=== PATIENT | female | born 1995 | race Caucasian/White ===

== ENCOUNTER 2016-12-10 23:24 | Emergency (ER) | payer SELFPAY ==
[2016-12-10 23:32] VITALS: RESP 18
[2016-12-11] MEDS ORDERED: diphenhydrAMINE 50 MG/ML 1 ML VIAL IVP STA (01:11)
[2016-12-11] MEDS ORDERED: METOCLOPRAMIDE 5 MG/ML 2 ML VIAL IVP STA (01:11)
[2016-12-11] MEDS ORDERED: SODIUM CHLORIDE 0.9% 1,000 ML IV STA (01:11)
[2016-12-11 01:45] LABS: Basophils % (A) 0 %; CH 32.6; CHCM 36.9; Eosinophils % (A) 0 %; HCT 37.2 % (34.0-46.0); HDW 2.51; HGB 13.1 gm/dL (11.4-16.0); Luc # (Auto) 0.16; Luc % (Auto) 1; Lymphocytes # (A) 1.2 k/uL (1.0-4.8); Lymphocytes % (A) 8 %; MCH 31.4 pg (25.0-35.0); MCHC 35.3 g/dL (31.0-37.0); MCV 88.9 fL (80.0-100.0); Mean Platelet Volume 7.5; Monocytes # (A) 0.5 k/uL (0-1.0); Monocytes % (A) 4 %; Neutrophils % (A) 87 %; RBC 4.19 m/uL (3.80-5.40); RDW 12.7 % (11.5-15.5); WBC 13.9 k/uL (3.8-10.6); WBC (Perox) 13.82
[2016-12-11 01:56] LABS: ALT 31 U/L (9-52); AST 21 U/L (14-36); Alkaline Phosphatase 40 U/L (38-126); Amylase 119 U/L (30-110); Anion Gap 13 mmol/L; Blood Urea Nitrogen 11 mg/dL (7-17); Calcium 9.4 mg/dL (8.4-10.2); Carbon Dioxide 23 mmol/L (22-30); Chloride 104 mmol/L (98-107); Glucose 87 mg/dL (74-99); Non-African American GFR(MDRD) >60 (>60 ml/min/1.73 sqM); Potassium 4.2 mmol/L (3.5-5.1); Sodium 140 mmol/L (137-145); Total Bilirubin 0.6 mg/dL (0.2-1.3); Total Protein 6.7 g/dL (6.3-8.2)
[2016-12-11 02:20] LABS: Appearance,Urine Cloudy (Clear); Bilirubin,Urine Negative (Negative); Glucose,Urine (UA) Negative (Negative); Ketones,Urine 4+ (Negative); Leukocyte Esterase,Urine Large (Negative); Mucus,Urine Few /hpf; Nitrite,Urine Negative (Negative); PH, Urine 5.5 (5.0-8.0); Particle Count 12807; Protein,Urine 1+ (Negative); RBC,Urine 16 /hpf (0-5); Specific Gravity,Urine 1.023 (1.001-1.035); Squamous Epithelial Cell,Urine 6 /hpf (0-4); UA Billing (MACRO vs. MICRO) MICRO; Urobilinogen,Urine <2.0 mg/dL (<2.0); WBC,Urine 22 /hpf (0-5)
[2016-12-11] MEDS ORDERED: SODIUM CHLORIDE 0.9% 1,000 ML IV ONE (02:36)
--- NOTE | 2016-12-11 02:42 | ED ---
Nausea/Vomiting/Diarrhea HPI - General Chief complaint: Nausea/Vomiting/Diarrhea Stated complaint: vomiting/13 wks preg Time Seen by Provider: 12/11/16 01:03 Source: patient, RN notes reviewed, old records reviewed Mode of arrival: ambulatory Limitations: no limitations - History of Present Illness Initial comments: Patient is a 20-year-old female reporting that this is her second and she is currently 13 weeks with 1 day of intractable vomiting. Patient reports that she has been vomiting every 30 minutes all day today. She denies any symptoms of diarrhea, dysuria, hematuria or specific abdominal pain. Patient reports that she's had an ultrasound recently 3 weeks ago which reported that her is developing within the uterus and is normal. She denies any vaginal discharge or bleeding. She denies any cramping abdominal pain. Patient also denies any fever or chills or history of sick contacts. She 's been eating a normal diet and denies any possibility of food poisoning. - Related Data Home Medications Medication Instructions Recorded Confirmed L.acidoph,Paracasei, B.lactis 1 cap PO DAILY 12/27/15 10/16/16 [Probiotic] Previous Rx's Medication Instructions Recorded Amoxic-Pot Clav 500-125 mg 1 tab PO Q12HR #10 tab 12/11/16 [Augmentin 500-125 mg] Metoclopramide [Reglan] 10 mg PO TID #8 tab 12/11/16 Allergies Allergy/AdvReac Type Severity Reaction Status Date / Time No Known Allergies Allergy Verified 12/10/16 23:32 Review of Systems ROS Statement: Those systems with pertinent positive or pertinent negative responses have been documented in the HPI. ROS Other: All systems not noted in ROS Statement are negative. Past Medical History Past Medical History: No Reported History Additional Past Medical History / Comment(s): palpatations with dizziness in the past {seen in the [facility] on 12/12/15 for sx and released} pt states she was told her thyroid levels were low by an "all natural doctor" and was taking an OTC supplement for it. History of Any Multi-Drug Resistant Organisms: None Reported Past Surgical History: No Surgical Hx Reported Past Anesthesia/Blood Transfusion Reactions: No Reported Reaction Past Psychological History: No Psychological Hx Reported Smoking Status: Never smoker Past Alcohol Use History: None Reported Past Drug Use History: None Reported - Past Family History Father Additional Family Medical History / Comment(s): irregular heartbeat pt is unsure of what the term is General Exam - General Exam Comments Initial Comments: Cirilo is a pleasant 20-year-old [employer]. She does appear to be tired. Limitations: no limitations General appearance: alert, in no apparent distress Head exam: Present: atraumatic, normocephalic, normal inspection Eye exam: Present: normal appearance, PERRL, EOMI. Absent: scleral icterus, conjunctival injection, periorbital swelling ENT exam: Present: normal exam, normal oropharynx, mucous membranes dry. Absent : mucous membranes moist Neck exam: Present: normal inspection. Absent: tenderness, meningismus, lymphadenopathy Respiratory exam: Present: normal lung sounds bilaterally. Absent: respiratory distress, wheezes, rales, rhonchi, stridor Cardiovascular Exam: Present: regular rate, normal rhythm, normal heart sounds. Absent: systolic murmur, diastolic murmur, rubs, gallop, clicks GI/Abdominal exam: Present: soft, normal bowel sounds. Absent: distended, tenderness, guarding, rebound, rigid Extremities exam: Present: normal inspection, full ROM, normal capillary refill. Absent: tenderness, pedal edema, joint swelling, calf tenderness Back exam: Present: normal inspection Neurological exam: Present: alert, oriented X3, CN II-XII intact Psychiatric exam: Present: normal affect, normal mood Course Vital Signs 12/10/16 12/11/16 23:30 03:33 Temperature 98.4 F 97.6 F Pulse Rate 67 88 Respiratory 18 18 Rate Blood Pressure 103/53 102/56 O2 Sat by Pulse 99 98 Oximetry Medical Decision Making - Medical Decision Making Cirilo is a 20-year-old F[employer] chief complaint of irretractable vomiting for one day. She denies any diarrhea. She is currently 13 weeks , she denies any vaginal discharge or bleeding or abdominal/cramping pain. Patient's labs are obtained and are negative for any acute process. Patient was given a 2 L saline bolus. Urinalysis does show 4+ ketones and numerous red blood cells and white blood cells. Patient will be started on Augmentin for possible urinary tract infection. Urine will be cultured. I'll write the patient for Reglan for vomiting and advised her to follow-up with her [facility] and PCP. Patient understands the treatment plan will comply. She was reevaluated and states that her nausea feeling is subsided. Patient states that she would like to be discharged at this time. Return parameters were discussed. - Lab Data Result diagrams: 12/11/16 01:35 12/11/16 01:35 Lab Results 12/11/16 12/11/16 12/11/16 Range/Units 01:35 01:35 02:01 WBC 13.9 H (3.8-10.6) k/uL RBC 4.19 (3.80-5.40) m/uL Hgb 13.1 (11.4-16.0) gm/dL Hct 37.2 (34.0-46.0) % MCV 88.9 (80.0-100.0) fL MCH 31.4 (25.0-35.0) pg MCHC 35.3 (31.0-37.0) g/dL RDW 12.7 (11.5-15.5) % Plt Count 211 (150-450) k/uL Neutrophils % 87 % Lymphocytes % 8 % Monocytes % 4 % Eosinophils % 0 % Basophils % 0 % Neutrophils # 12.0 H (1.3-7.7) k/uL Lymphocytes # 1.2 (1.0-4.8) k/uL Monocytes # 0.5 (0-1.0) k/uL Eosinophils # 0.0 (0-0.7) k/uL Basophils # 0.0 (0-0.2) k/uL Sodium 140 (137-145) mmol/L Potassium 4.2 (3.5-5.1) mmol/L Chloride 104 (98-107) mmol/L Carbon Dioxide 23 (22-30) mmol/L Anion Gap 13 mmol/L BUN 11 (7-17) mg/dL Creatinine 0.50 L (0.52-1.04) mg/dL Est GFR (MDRD) Af Amer >60 (>60 ml/min/1.73 sqM) Est GFR (MDRD) Non-Af >60 (>60 ml/min/1.73 sqM) Glucose 87 (74-99) mg/dL Calcium 9.4 (8.4-10.2) mg/dL Total Bilirubin 0.6 (0.2-1.3) mg/dL AST 21 (14-36) U/L ALT 31 (9-52) U/L Alkaline Phosphatase 40 (38-126) U/L Total Protein 6.7 (6.3-8.2) g/dL Albumin 3.8 (3.5-5.0) g/dL Amylase 119 H (30-110) U/L Lipase 99 (23-300) U/L Urine Color Yellow Urine Appearance Cloudy H (Clear) Urine pH 5.5 (5.0-8.0) Ur Specific [place] 1.023 (1.001-1.035) Urine Protein 1+ H (Negative) Urine Glucose (UA) Negative (Negative) Urine Ketones 4+ H (Negative) Urine Blood Negative (Negative) Urine Nitrate Negative (Negative) Urine Bilirubin Negative (Negative) Urine Urobilinogen <2.0 (<2.0) mg/dL Ur Leukocyte Esterase Large H (Negative) Urine RBC 16 H (0-5) /hpf Urine WBC 22 H (0-5) /hpf Ur Squamous Epith Cells 6 H (0-4) /hpf Urine Mucus Few H (None) /hpf Disposition Clinical Impression: Vomiting affecting , UTI (urinary tract infection) Disposition: HOME SELF-CARE Condition: Good Instructions: Acute Nausea and Vomiting (ED) Additional Instructions: Patient advised to rest, increase fluids and complete entire antibiotic prescription. Follow-up with primary care provider. Return to the emergency department if any alarming signs or symptoms occur. Prescriptions: Amoxic-Pot Clav 500-125 mg [Augmentin 500-125 mg] 1 tab PO Q12HR #10 tab Metoclopramide [Reglan] 10 mg PO TID #8 tab Referrals: Meghna Layne MD [Primary Care Provider] - 1-2 days Time of Disposition: 02:42
[2016-12-11 03:36] VITALS: BP 102/56; PULSE 88; TEMP 97.6
== END 2016-12-11 03:36 | disposition home or self-care (01) ==
LOC: EC 23:24
DX: O23.41 Unspecified infection of urinary tract in pregnancy, first trimester (principal); R11.2 Nausea with vomiting, unspecified; Z3A.13 13 weeks gestation of pregnancy; Z79.899 Other long term (current) drug therapy
CPT/HCPCS: 36415; 80053; 82150; 83690; 85025; 81001; 87086; 99284; 96374; 96361; J2765

== ENCOUNTER → 2017-04-10 | Outpatient (CLI) | payer OTHER | LOC: LABWHC1 10:38 | PROVIDERS: ATTEND Obstetrics & Gynecology | DX: Z36 Encounter for antenatal screening of mother (principal) | CPT/HCPCS: 36415; 82950 ==

== ENCOUNTER 2017-06-06 21:49 | Outpatient (CLI) | payer OTHER ==
[2017-06-06 22:23] VITALS: BP 113/62; PULSE 60; RESP 18; TEMP 96.3
--- NOTE | 2017-08-11 21:48 | P.MSEPDOC ---
Presenting Problems - Arrival Data Date of Arrival on Unit: 06/06/17 Time of Arrival on Unit: 21:41 Mode of Transport: Ambulatory - Complaint OB-Reason for Admission/Chief Complaint: Possible Onset of Labor Comment: Pt c/o contractions. Medical History - Information : 1 Para: 0 Term: 0 : 0 Abortions: Spontaneous or Elective: 0 Number of Living Children: 0 - Gestational Age Gestational Age by DARRIUS (wks/days): 38 Weeks and 1 Days Review of Systems - Review of Systems Constitutional: No problems Breast: No problems ENT: No problems Cardiovascular: No problems Respiratory: No problems Gastrointestinal: No problems Genitourinary: No problems Musculoskeletal: No problems Neurological: No problems Skin: No problems Vital Signs - Temperature Temperature: 96.3 F Temperature Source: Temporal Artery Scan - Pulse Right Pulse Rate: 60 Pulse Assessment Method: Automatic Cuff - Respirations Respiratory Rate: 18 Oxygen Delivery Method: Room Air - Blood Pressure Right Arm Blood Pressure: 113/62 Blood Pressure Mean: 79 Blood Pressure Source: Automatic Cuff Medical Screen Scoring (Pre) - Cervical Exam Dilation: 1-3 cm = 1 Membranes: Intact - Uterine Contractions Frequency: > 5 minutes apart = 1 Duration: > 40 seconds = 2 Intensity: N/A - Maternal Vital Signs Maternal Temperature: N/A Maternal Blood Pressure: N/A Signs of Preeclampsia: N/A Maternal Respirations: N/A - Maternal Trauma Maternal Trauma: N/A - Assessment Baseline FHR: 135 Heart Rate - NICHD Category: Category I (Normal) = 0 NST: Reactive Position: N/A Station: N/A - Total Score Total Score (Pre): 4 - Level of Risk Level of Risk: Low (0-5) Medical Screen Scoring (Post) - Cervical Exam Dilation: 1-3 cm = 1 Effacement: More than 50% = 2 Membranes: Intact - Uterine Contractions Frequency: > 5 minutes apart = 1 Duration: N/A Intensity: N/A - Maternal Vital Signs Maternal Temperature: N/A Maternal Blood Pressure: N/A Signs of Preeclampsia: N/A Maternal Respirations: N/A - Maternal Trauma Maternal Trauma: N/A - Assessment Heart Rate: 135 Heart Rate - NICHD Category: Category I (Normal) = 0 NST: Reactive Position: N/A Station: N/A - Total Score Total Score (Post): 4 - Post Treatment Level of Risk Post Treatment Level of Risk: Low (0-5) Physician Notification (Post) - Physician Notified Physician Notified Date: 06/06/17 Physician Notified Time: 23:42 Physician/Practitioner Notified:: Dr. Chavira Spoke With: Dr. Chavira New Order Received: Yes - Notification Comment Comment: Instructed to recheck cervical exam in 1 hour. If no change pt may be discharged home. Disposition - Disposition OB Disposition: Discharge to home, Written follow up instructions reviewed Discharge Date: 06/07/17 Discharge Time: 00:40 I agree with the RN Medical Screening Exam: Yes Risk & Benefit of care provided described in d/c instruction: Yes Diagnosis: FALSE LABOR AT OR AFTER 37 COMPLETED WEEKS OF GESTATION
== END 2017-06-07 00:40 | disposition home or self-care (01) ==
LOC: FBPOP 21:49
PROVIDERS: ATTEND Obstetrics & Gynecology
DX: O47.1 False labor at or after 37 completed weeks of gestation (principal); Z3A.38 38 weeks gestation of pregnancy
CPT/HCPCS: 59025; G0463; 99213

== ENCOUNTER 2017-06-09 23:38 | Inpatient (IN) | payer OTHER ==
[2017-06-10] MEDS: LACTATED RINGERS 1,000 ML IV SCH ×3 (00:20→20:01)
[2017-06-10] MEDS ORDERED: LIDOCAINE 1% (PF) 10 MG/ML (30 ML SDV) SQ PRN (00:21)
[2017-06-10] MEDS ORDERED: TERBUTALINE 1 MG/ML VIAL SQ PRN (00:21)
[2017-06-10] MEDS ORDERED: CARBOPROST TROMETHAMINE 250 MCG/ML 1 ML AMP IM PRN (00:21)
[2017-06-10] MEDS ORDERED: OXYTOCIN 10 UNIT/ML 1 ML VIAL IM PRN (00:21)
[2017-06-10] MEDS ORDERED: METHYLERGONOVINE 0.2 MG/ML 1 ML AMP IM PRN (00:21)
[2017-06-10 00:35] VITALS: BMI 25.8
[2017-06-10 00:44] LABS: Basophils # (A) 0.1 k/uL (0-0.2); Basophils % (A) 1 %; CH 34.7; CHCM 36.7; Eosinophils # (A) 0.1 k/uL (0-0.7); Eosinophils % (A) 1 %; HCT 38.3 % (34.0-46.0); HDW 2.74; HGB 13.5 gm/dL (11.4-16.0); Luc # (Auto) 0.32; Luc % (Auto) 3; Lymphocytes # (A) 2.3 k/uL (1.0-4.8); Lymphocytes % (A) 20 %; MCH 33.4 pg (25.0-35.0); MCHC 35.1 g/dL (31.0-37.0); MCV 95.1 fL (80.0-100.0); Mean Platelet Volume 8.2; Monocytes # (A) 0.7 k/uL (0-1.0); Monocytes % (A) 6 %; Neutrophils # (A) 8.3 k/uL (1.3-7.7); Neutrophils % (A) 70 %; RBC 4.03 m/uL (3.80-5.40); RDW 13.5 % (11.5-15.5); WBC 11.7 k/uL (3.8-10.6); WBC (Perox) 11.28
[2017-06-10] MEDS ORDERED: BUTORPHANOL 1 MG/ML 1 ML VIAL IV PRN (03:19)
[2017-06-10] MEDS ORDERED: OXYTOCIN 20 UNITS/1000 ML NS 1,000 ML IV SCH (06:30)
--- NOTE | 2017-06-10 07:41 | P.HPOB ---
History of Present Illness H&P Date: 06/10/17 This is a 21-year-old white female 2 para 0010 EDC 06/20/2017 at 38-3/7 weeks' gestation. Patient presented with spontaneous amniorrhexis which she states occurred at home at approximately 11:15 PM last night. Fluid was clear. Fetus is been active throughout the . On admission she denied uterine contractions. history blood type A+, rubella status immune. Hepatitis B surface antigen, gonorrhea and chlamydia cultures, group B strep cultures negative urine culture negative. One-hour Glucola 113. 19 week ultrasound consistent with normal-appearing anatomic survey. Past medical history is significant for anxiety and hypothyroidism. Past surgical history is negative. Current medications vitamins daily, probiotics daily, vitamin B6 daily ALLERGIES none known. Family history is significant for uterine cancer and hypoplastic heart. Social history patient is single, her boyfriend Michael is involved. She is a nonsmoker, and denies alcohol use. On exam this is a pleasant young female, 5 foot 7 inches, 165 pounds, blood pressure 118/70, vital signs stable, patient is afebrile. The general physical exam is within normal limits. The chest is clear in all high. Cervix at time of this dictation is 5 cm dilated, 80% effaced, -1 to -2 station, vertex presentation. There is a fore bag that is broken with an amnio-hook and clear fluid was produced. heart rate is consistent with reactive NST. Impression: 38-3/7 weeks intrauterine , here in active spontaneous labor. All signs reassuring. unremarkable. Plan: Continue oxytocin augmentation per hospital protocol. Close maternal and surveillance. Analgesia options are reviewed with the patient. Anticipate normal spontaneous vaginal delivery. Review of Systems Negative except as in HPI. Constitutional: Reports as per HPI Past Medical History Past Medical History: No Reported History Additional Past Medical History / Comment(s): palpatations with dizziness in the past {seen in the [facility] on 12/12/15 for sx and released} pt states she was told her thyroid levels were low by an "all natural doctor" and was taking an OTC supplement for it. History of Any Multi-Drug Resistant Organisms: None Reported Past Surgical History: No Surgical Hx Reported Past Anesthesia/Blood Transfusion Reactions: No Reported Reaction Past Psychological History: No Psychological Hx Reported Smoking Status: Never smoker Past Alcohol Use History: None Reported Past Drug Use History: None Reported - Past Family History Father Additional Family Medical History / Comment(s): irregular heartbeat pt is unsure of what the term is Medications and Allergies Home Medications Medication Instructions Recorded Confirmed Type L.acidoph,Paracasei, B.lactis 1 cap PO DAILY 12/27/15 06/09/17 History [Probiotic] Pnv,Calcium 72/Iron/Folic Acid 1 tab PO DAILY 06/06/17 06/09/17 History [ Plus Tablet] Allergies Allergy/AdvReac Type Severity Reaction Status Date / Time No Known Allergies Allergy Verified 06/09/17 23:42 Exam - Vital Signs Vital signs: Vital Signs Temp Pulse Resp BP Pulse Ox 06/10/17 00:25 97.1 F L 82 15 118/70 100 06/09/17 23:42 97 F L 82 15 118/70 100 Intake and Output 06/09/17 06/10/17 06/10/17 22:59 06:59 14:59 Other: # Voids 1 Weight 74.843 kg See dictation under HPI. Results Result Diagrams: 06/10/17 00:20 Abnormal Lab Results - Last 24 Hours (Table) 06/10/17 Range/Units 00:20 WBC 11.7 H (3.8-10.6) k/uL Neutrophils # 8.3 H (1.3-7.7) k/uL Assessment and Plan Plan: Continue oxytocin per hospital protocol. Close maternal and surveillance. Analgesic options have been reviewed with the patient for her consideration. Anticipate normal spontaneous vaginal delivery. Time with Patient: Less than 30
[2017-06-10] MEDS ORDERED: Acetaminophen-Codeine 300-30mg TAB PO PRN (11:51)
[2017-06-10] MEDS ORDERED: ACETAMINOPHEN TAB 325 MG TAB PO PRN (11:51)
[2017-06-10] MEDS ORDERED: HYDROCORTISONE 2.5% RECTAL CREAM 30 GM TUBE RECTAL PRN (11:51)
[2017-06-10] MEDS ORDERED: ZOLPIDEM 5 MG TAB PO PRN (11:51)
[2017-06-10] MEDS ORDERED: diphenhydrAMINE 25 MG CAP PO PRN (11:51)
[2017-06-10] MEDS ORDERED: diphenhydrAMINE 50 MG CAP PO PRN (11:51)
[2017-06-10] MEDS ORDERED: diphenhydrAMINE 50 MG/ML 1 ML VIAL IVP PRN ×2 (11:51)
[2017-06-10] MEDS ORDERED: WITCH HAZEL 1 EACH MED..PAD TOPICAL PRN (11:51)
[2017-06-10] MEDS ORDERED: BENZOCAINE/MENTHOL SPRAY 1 GM/SPRAY AEROSOL TOPICAL PRN (11:51)
[2017-06-10] MEDS ORDERED: diphenhydrAMINE ELIXIR 25 MG/10 ML CUP PO PRN (11:51)
[2017-06-10] MEDS ORDERED: SIMETHICONE 80 MG CHEWABLE PO PRN (11:51)
[2017-06-10] MEDS ORDERED: LANOLIN CREAM 5 GM TUBE TOPICAL PRN (11:51)
--- NOTE | 2017-06-10 11:51 | P.PROBDLV ---
Vaginal Delivery Note - . Vaginal Delivery Note: This is a 21-year-old white female 2 para 0010 EDC 06/20/2017 at 38-3/7 weeks' gestation. Patient presented with spontaneous amniorrhexis which occurred at home, clear fluid, with rare mild uterine contractions to follow. is essentially unremarkable, group B strep cultures negative, blood type A positive, rubella status immune. Please see my dictated history and physical for details. Oxytocin was started and titrated per hospital protocol. Patient received Stadol but declined the option for epidural. She progressed through labor and became completely dilated at 1058 hrs. She began the second stage of labor without issue. With excellent maternal expulsive efforts the 's head came down the canal. The perineal body was prepped and draped in usual sterile fashion. delivered occiput anterior and restituted accordingly. There was no nuchal cord noted. The left or anterior shoulder was gently and easily delivered from underneath the pubic symphysis at which time the oropharynx, nasopharynx, and external nares were bulb suctioned on the perineal body. Patient was officially delivered of a liveborn female at 1131 hours. The umbilical cord was doubly clamped and ligated, she was handed to waiting nurses for evaluation where scores of 9 and 9 at one and 5 minutes respectively were given. The uterus was then massaged. Placenta delivered spontaneously, it was inspected and noted to be intact with trivascular cord at 1135 hours. At this time Pitocin was given. Uterus is again massaged and blood flow is minimal. Inspection of the cervix, vagina, perineum, periurethral, and perirectal areas revealed a small second-degree perineal laceration. This was easily repaired in the usual fashion using 3-0 Vicryl suture. We approximation was excellent. Infant weighed 7 lbs. 4 oz. or 3295 g. Estimated blood loss 300 mL's. Sponge needle and enhancement counts are correct at the end of the procedure. Patient and her family are allowed to begin the bonding experience in the LDR.
[2017-06-10] MEDS: IBUPROFEN 600 MG TAB PO PRN ×2 (13:18→23:47)
[2017-06-10] MEDS: SENNOSIDES-DOCUSATE SODIUM 1 EACH TAB PO SCH (20:46)
--- NOTE | 2017-06-11 06:48 | P.DS ---
Providers Date of admission: 06/10/17 00:23 Expected date of discharge: 06/11/17 Attending physician: Renee Mukherjee [facility] [place] [facility] Course: This is a 21-year-old white female 2 para 0010 EDC 06/20/2017 at 38-3/7 weeks' gestation. Patient presented with spontaneous amniorrhexis which occurred at home, clear fluid, and uterine contractions irregularly to follow. Fetus is been active throughout the . history was essentially unremarkable, group B strep cultures negative, blood type A positive , rubella status immune. Please see my dictated history and physical for details. Patient was admitted, epidural was placed per her request. She went on to spontaneously deliver a liveborn female with scores of 9 and 9 at one and 5 minutes respectively. weighed 3295 g or 7 lbs. 4 oz. There was an estimated blood loss of 300 mL, a small perineal laceration easily repaired, please see dictated delivery note for details. This morning the patient is doing well. She is voiding, ambulating and passing flatus without difficulty. Vital signs are stable and she is afebrile. Fundus is firm and in the midline, symmetric and 18 week size, extremities are negative for edema. Perineal body is clean and dry, intact. Gobles is doing well. Patient is being discharged home in good condition. She will follow-up with me in the office in 6 weeks. I have reminded her no intercourse, tampons or douching. She will use [id number] Aleve as needed for pain. She will continue taking her vitamin daily. I reminded her no intercourse, tampons or douching. We have briefly reviewed her options for contraception and we will discuss this more thoroughly in the office. Call with any fevers shakes or chills, foul smelling or copious lochia, with the passage of large blood clots, with any pain not alleviated by [id number] products, or indeed with any concerns. Patient Condition at Discharge: Good Plan - Discharge Summary New Discharge Prescriptions: No Action L.acidoph,Paracasei, B.lactis [Probiotic] 1 cap PO DAILY Pnv,Calcium 72/Iron/Folic Acid [ Plus Tablet] 1 tab PO DAILY Discharge Medication List L.acidoph,Paracasei, B.lactis [Probiotic] 1 cap PO DAILY 12/27/15 [History] Pnv,Calcium 72/Iron/Folic Acid [ Plus Tablet] 1 tab PO DAILY 06/06/17 [ History] Follow up Appointment(s)/Referral(s): Renee Mukherjee MD [Primary Care Provider] - 6 Weeks Discharge Disposition: HOME SELF-CARE
[2017-06-11] MEDS: SENNOSIDES-DOCUSATE SODIUM 1 EACH TAB PO SCH (07:30)
[2017-06-11 07:32] VITALS: BP 99/52; PULSE 66; RESP 16; TEMP 98.2
== END 2017-06-11 13:14 | disposition home or self-care (01) | DRG 775 ==
LOC: FBPOP 23:38 → 4FBP 06-10 00:23
PROVIDERS: ADMIT Obstetrics & Gynecology; ATTEND Obstetrics & Gynecology
PROC: 10E0XZZ Delivery of Products of Conception, External Approach (ICD-10-PCS; principal; 2017-06-10)
PROC: 0KQM0ZZ Repair Perineum Muscle, Open Approach (ICD-10-PCS; 2017-06-10)
PROC: 00HU33Z Insertion of Infusion Device into Spinal Canal, Percutaneous Approach (ICD-10-PCS; 2017-06-10)
PROC: 3E0R3CZ (ICD-10-PCS; 2017-06-10)
DX: O70.1 Second degree perineal laceration during delivery (principal); O99.284 Endocrine, nutritional and metabolic diseases complicating childbirth; E03.9 Hypothyroidism, unspecified; Z37.0 Single live birth; Z3A.38 38 weeks gestation of pregnancy; Z79.899 Other long term (current) drug therapy
CPT/HCPCS: 59025; 85025; 88307; 99213

== ENCOUNTER 2020-12-23 19:36 | Emergency (ER) | payer BC, OTHER ==
[2020-12-23] MEDS ORDERED: SODIUM CHLORIDE 0.9% 500 ML 500 ML IV STA (20:16)
[2020-12-23] MEDS ORDERED: SODIUM CHLORIDE 0.9% 1,000 ML IV STA (20:16)
[2020-12-23 20:42] LABS: Basophils % (A) 0 %; Eosinophils # (A) 0.1 k/uL (0-0.7); Eosinophils % (A) 1 %; HCT 38.6 % (34.0-46.0); HGB 13.3 gm/dL (11.4-16.0); Lymphocytes # (A) 2.3 k/uL (1.0-4.8); Lymphocytes % (A) 18 %; MCH 31.4 pg (25.0-35.0); MCHC 34.4 g/dL (31.0-37.0); MCV 91.5 fL (80.0-100.0); Mean Platelet Volume 7.4; Monocytes # (A) 0.7 k/uL (0-1.0); Monocytes % (A) 6 %; Neutrophils # (A) 9.2 k/uL (1.3-7.7); Neutrophils % (A) 73 %; Platelet Count 233 k/uL (150-450); RBC 4.22 m/uL (3.80-5.40); RDW 13.4 % (11.5-15.5); WBC 12.6 k/uL (3.8-10.6)
[2020-12-23 20:43] LABS: Appearance,Urine Clear (Clear); Bilirubin,Urine Negative (Negative); Blood,Urine Negative (Negative); Color,Urine Yellow; Glucose,Urine (UA) Negative (Negative); Ketones,Urine Trace (Negative); Leukocyte Esterase,Urine Small (Negative); Mucus,Urine Rare /hpf; Nitrite,Urine Negative (Negative); PH, Urine 6.5 (5.0-8.0); Protein,Urine Trace (Negative); RBC,Urine 1 /hpf (0-5); Specific Gravity,Urine 1.027 (1.001-1.035); Squamous Epithelial Cell,Urine 4 /hpf (0-4); WBC,Urine 3 /hpf (0-5)
[2020-12-23 20:51] LABS: ALT 17 U/L (4-34); AST 29 U/L (14-36); African American GFR (CKD) >90 (>60 ml/min/1.73 sqM); Albumin 3.8 g/dL (3.5-5.0); Alkaline Phosphatase 71 U/L (38-126); Amylase 193 U/L (30-110); Anion Gap 6 mmol/L; Blood Urea Nitrogen 7 mg/dL (7-17); Calcium 9.1 mg/dL (8.4-10.2); Carbon Dioxide 24 mmol/L (22-30); Chloride 103 mmol/L (98-107); Glucose 91 mg/dL (74-99); Lipase 216 U/L (23-300); Non-African American GFR(CKD) >90 (>60 ml/min/1.73 sqM); Potassium 3.8 mmol/L (3.5-5.1); Sodium 133 mmol/L (137-145); Total Bilirubin 0.5 mg/dL (0.2-1.3); Total Protein 6.7 g/dL (6.3-8.2)
--- NOTE | 2020-12-23 20:56 | ED ---
Abdominal Pain HPI - General Chief Complaint: Abdominal Pain Stated Complaint: Gall Bladder Pain,29 weeks Time Seen by Provider: 12/23/20 19:53 Source: patient, RN notes reviewed Mode of arrival: wheelchair Limitations: no limitations - History of Present Illness Initial Comments: 24-year-old female presents emergency Department with chief complaint of a bdominal pain. Patient's been having recurrent bouts of pain she states it has been associated with certain foods. Patient states she gets extreme pain in her upper abdomen and she states that she probably vomits. Patient is 29 weeks she is A0 she did complain that she had morning sickness which seemed to resolve and now has developed into this. She has meant that she has heartburn issues in which she takes Tums for. Denies any diarrhea constipation no melena hematochezia dysuria hematuria denies any compilations her she's felt normal movement. Patient's GENERAL ADJUSTER is Dr. Mukherjee. - Related Data Home Medications Medication Instructions Recorded Confirmed L.acidoph,Paracasei, B.lactis 1 cap PO DAILY 12/27/15 06/09/17 [Probiotic] Pnv,Calcium 72/Iron/Folic Acid 1 tab PO DAILY 06/06/17 06/09/17 [ Plus Tablet] Allergies Allergy/AdvReac Type Severity Reaction Status Date / Time No Known Allergies Allergy Verified 12/23/20 19:52 Review of Systems ROS Statement: Those systems with pertinent positive or pertinent negative responses have been documented in the HPI. ROS Other: All systems not noted in ROS Statement are negative. Past Medical History Past Medical History: No Reported History Additional Past Medical History / Comment(s): palpatations with dizziness in the past {seen in the [facility] on 12/12/15 for sx and released} pt states she was told her thyroid levels were low by an "all natural doctor" and was taking an OTC supplement for it. History of Any Multi-Drug Resistant Organisms: None Reported Past Surgical History: No Surgical Hx Reported Past Anesthesia/Blood Transfusion Reactions: No Reported Reaction Past Psychological History: No Psychological Hx Reported Smoking Status: Never smoker Past Alcohol Use History: None Reported Past Drug Use History: None Reported - Past Family History Father Additional Family Medical History / Comment(s): irregular heartbeat pt is unsure of what the term is General Exam Limitations: no limitations General appearance: alert, in no apparent distress Head exam: Present: atraumatic, normocephalic, normal inspection Eye exam: Present: normal appearance, PERRL, EOMI. Absent: scleral icterus, conjunctival injection, periorbital swelling ENT exam: Present: normal exam, normal oropharynx, mucous membranes moist Neck exam: Present: normal inspection, full ROM. Absent: tenderness, meni ngismus, lymphadenopathy Respiratory exam: Present: normal lung sounds bilaterally. Absent: respiratory distress, wheezes, rales, rhonchi, stridor Cardiovascular Exam: Present: regular rate, normal rhythm, normal heart sounds. Absent: systolic murmur, diastolic murmur, rubs, gallop, clicks GI/Abdominal exam: Present: soft, tenderness (Mild upper abdominal tenderness), normal bowel sounds. Absent: distended, guarding, rebound, rigid Back exam: Absent: CVA tenderness (R), CVA tenderness (L) Neurological exam: Present: alert, oriented X3 Skin exam: Present: warm, dry, intact, normal color. Absent: rash Course Vital Signs 12/23/20 12/23/20 19:49 22:02 Temperature 97.8 F Pulse Rate 87 84 Respiratory 20 18 Rate Blood Pressure 127/66 106/64 O2 Sat by Pulse 99 98 Oximetry Medical Decision Making - Medical Decision Making Ultrasound shows multiple stones within the gallbladder. Labs are essentially unremarkable. Patient is asymptomatic. Patient be discharged at this return parameters were discussed. Patient will follow-up with GENERAL ADJUSTER and surgery. - Lab Data Result diagrams: 12/23/20 20:22 12/23/20 20:22 Lab Results 12/23/20 12/23/20 12/23/20 Range/Units 20:22 20:22 20:22 WBC 12.6 H (3.8-10.6) k/uL RBC 4.22 (3.80-5.40) m/uL Hgb 13.3 (11.4-16.0) gm/dL Hct 38.6 (34.0-46.0) % MCV 91.5 (80.0-100.0) fL MCH 31.4 (25.0-35.0) pg MCHC 34.4 (31.0-37.0) g/dL RDW 13.4 (11.5-15.5) % Plt Count 233 (150-450) k/uL MPV 7.4 Neutrophils % 73 % Lymphocytes % 18 % Monocytes % 6 % Eosinophils % 1 % Basophils % 0 % Neutrophils # 9.2 H (1.3-7.7) k/uL Lymphocytes # 2.3 (1.0-4.8) k/uL Monocytes # 0.7 (0-1.0) k/uL Eosinophils # 0.1 (0-0.7) k/uL Basophils # 0.0 (0-0.2) k/uL Sodium 133 L (137-145) mmol/L Potassium 3.8 (3.5-5.1) mmol/L Chloride 103 (98-107) mmol/L Carbon Dioxide 24 (22-30) mmol/L Anion Gap 6 mmol/L BUN 7 (7-17) mg/dL Creatinine 0.45 L (0.52-1.04) mg/dL Est GFR (CKD-EPI)AfAm >90 (>60 ml/min/1.73 sqM) Est GFR (CKD-EPI)NonAf >90 (>60 ml/min/1.73 sqM) Glucose 91 (74-99) mg/dL Calcium 9.1 (8.4-10.2) mg/dL Total Bilirubin 0.5 (0.2-1.3) mg/dL AST 29 (14-36) U/L ALT 17 (4-34) U/L Alkaline Phosphatase 71 (38-126) U/L Total Protein 6.7 (6.3-8.2) g/dL Albumin 3.8 (3.5-5.0) g/dL Amylase 193 H (30-110) U/L Lipase 216 (23-300) U/L Urine Color Yellow Urine Appearance Clear (Clear) Urine pH 6.5 (5.0-8.0) Ur Specific [place] 1.027 (1.001-1.035) Urine Protein Trace H (Negative) Urine Glucose (UA) Negative (Negative) Urine Ketones Trace H (Negative) Urine Blood Negative (Negative) Urine Nitrite Negative (Negative) Urine Bilirubin Negative (Negative) Urine Urobilinogen 2.0 (<2.0) mg/dL Ur Leukocyte Esterase Small H (Negative) Urine RBC 1 (0-5) /hpf Urine WBC 3 (0-5) /hpf Ur Squamous Epith Cells 4 (0-4) /hpf Urine Mucus Rare H (None) /hpf Disposition Clinical Impression: Cholelithiasis Disposition: HOME SELF-CARE Condition: Stable Instructions (If sedation given, give patient instructions): Gallstones (ED), Low Fat Diet (ED) Additional Instructions: Please return to the Emergency Department if symptoms worsen or any other concerns. Is patient prescribed a controlled substance at d/c from ED?: No Referrals: Renee Mukherjee MD [Primary Care Provider] - 1-2 days Roland Faustin MD [Medical Doctor] - 1-2 days Time of Disposition: 22:31
--- NOTE | 2020-12-23 21:35 | US ---
EXAMINATION TYPE: US gallbladder DATE OF EXAM: 12/23/2020 COMPARISON: NONE CLINICAL HISTORY: pain. multiple episodes of abd pain and vomiting, 28 weeks EXAM MEASUREMENTS: Liver Length: 14.5 cm Gallbladder Wall: 0.1 cm CBD: not seen Right Kidney: 10.3 x 4.6 x 5.4 cm *obscured by enlarging UT and bowel gas* Pancreas: not seen Liver: intercostal imaging Gallbladder: stones seen Evidence for sonographic Naidu's sign: yes CBD: wnl Right Kidney: renal pelvis fullness versus mild hydronephrosis IMPRESSION: There are gallstones. No dilated ducts. No focal liver defect.
[2020-12-23] MEDS ORDERED: CALCIUM CARBONATE 500 MG CHEWABLE PO STA (21:50)
[2020-12-23 22:50] VITALS: BP 106/77; PULSE 82; RESP 16; TEMP 97.6
== END 2020-12-23 22:49 | disposition home or self-care (01) ==
LOC: EC 19:36
DX: O99.613 Diseases of the digestive system complicating pregnancy, third trimester (principal); K80.20 Calculus of gallbladder without cholecystitis without obstruction; Z3A.29 29 weeks gestation of pregnancy
CPT/HCPCS: 36415; 76705; 80053; 81001; 82150; 83690; 85025; 96360; 99284

== ENCOUNTER 2021-02-24 13:42 | Outpatient (CLI) | payer BC ==
[2021-02-24 15:26] VITALS: BP 114/60; PULSE 87; RESP 16; TEMP 37
--- NOTE | 2021-04-12 15:13 | P.MSEPDOC ---
Presenting Problems - Arrival Data Date of Arrival on Unit: 02/24/21 Time of Arrival on Unit: 13:42 Mode of Transport: Ambulatory - Complaint OB-Reason for Admission/Chief Complaint: Rule Out SROM Medical History - Information : 2 Para: 1 Term: 1 : 0 Abortions: Spontaneous or Elective: 0 Number of Living Children: 1 - Gestational Age Gestational Age by DARRIUS (wks/days): 38 Weeks and 2 Days Review of Systems - Review of Systems Constitutional: No problems Breast: No problems ENT: No problems Cardiovascular: No problems Respiratory: No problems Gastrointestinal: No problems Genitourinary: No problems Musculoskeletal: No problems Neurological: No problems Skin: No problems Vital Signs - Temperature Temperature: 37.0 F Temperature Source: Tympanic - Pulse Right Brachial Pulse Rate: 87 Pulse Assessment Method: Automatic Cuff - Respirations Respiratory Rate: 16 Oxygen Delivery Method: Room Air - Blood Pressure Right Arm Blood Pressure: 114/60 Blood Pressure Mean: 78 Blood Pressure Source: Automatic Cuff Medical Screen Scoring - Assessment - Baby A Baseline FHR: 135 Physician Notification - Physician Notified Physician Notified Date: 02/24/21 Physician Notified Time: 14:32 Physician: Dr. Hernandez New Order Received: Yes - Notification Comment Comment: d/c home Disposition - Disposition OB Disposition: Discharge to home Discharge Date: 02/24/21 Discharge Time: 14:39 I agree with the RN Medical Screening Exam: Yes Case reviewed; plan agreed upon as documented in EMR&OBIX.: Yes Diagnosis: FALSE LABOR BEFORE 37 COMPLETED WEEKS OF GEST, THIRD TRI
== END 2021-02-24 14:40 | disposition home or self-care (01) ==
LOC: FBPOP 13:42
PROVIDERS: ATTEND Obstetrics & Gynecology Obstetrics
DX: O47.1 False labor at or after 37 completed weeks of gestation (principal); Z3A.38 38 weeks gestation of pregnancy; Z91.018 Allergy to other foods
CPT/HCPCS: 59025; 84112; 99213

== ENCOUNTER 2021-03-01 06:24 | Inpatient (IN) | payer BC ==
[2021-03-01] MEDS ORDERED: OXYTOCIN 10 UNIT/ML 1 ML VIAL IM PRN (06:31)
[2021-03-01] MEDS ORDERED: TERBUTALINE 1 MG/ML VIAL SQ PRN (06:31)
[2021-03-01] MEDS ORDERED: CARBOPROST TROMETHAMINE 250 MCG/ML 1 ML AMP IM PRN (06:31)
[2021-03-01] MEDS ORDERED: LIDOCAINE 0.5% (PF) 5 MG/ML (50 ML SDV) SQ PRN (06:31)
[2021-03-01] MEDS ORDERED: METHYLERGONOVINE 0.2 MG/ML 1 ML AMP IM PRN (06:31)
[2021-03-01] MEDS ORDERED: OXYTOCIN 30 UNITS/500 ML NS 30 UNIT in SALINE 1 500ML.BAG IV SCH (06:45)
[2021-03-01] MEDS: LACTATED RINGERS 1,000 ML IV SCH (06:47)
[2021-03-01 07:11] LABS: Basophils % (A) 0 %; Eosinophils # (A) 0.1 k/uL (0-0.7); Eosinophils % (A) 1 %; HCT 39.1 % (34.0-46.0); Lymphocytes # (A) 2.2 k/uL (1.0-4.8); Lymphocytes % (A) 24 %; MCH 29.9 pg (25.0-35.0); MCHC 33.3 g/dL (31.0-37.0); MCV 89.7 fL (80.0-100.0); Monocytes # (A) 0.7 k/uL (0-1.0); Monocytes % (A) 8 %; Neutrophils % (A) 65 %; Platelet Count 201 k/uL (150-450); RBC 4.36 m/uL (3.80-5.40); RDW 13.5 % (11.5-15.5); WBC 9.2 k/uL (3.8-10.6)
--- NOTE | 2021-03-01 08:04 | P.HPOB ---
History of Present Illness H&P Date: 03/01/21 Chief Complaint: Here for induction of labor with favorable multiparous cervix This is a 25-year-old white female 3 para 1011 EDC 03/08/2021 at 39 weeks gestation. Patient has been having difficulties with right upper quadrant pain and cholelithiasis. She is favorable and choosing induction at this time. Fetus is been active throughout the . She denies fluid leakage or vaginal bleeding. Past medical history is significant for anxiety, hypothyroidism, and cholelithiasis. Past surgical history is negative. Current medications baby aspirin daily, vitamin daily, probiotics daily. ALLERGIES none known. Family history significant for uterine cancer and hypoplastic heart. Reproductive history vaginal delivery 2017 7 lbs. 11 oz. female infant. Social history patient is , she has never been a smoker, she denies alcohol or drug use. history blood type is A+, rubella status immune. VDRL testing, urine culture, hepatitis B surface antigen, HIV testing, gonorrhea and chlamydia cultures, group B strep cultures all negative. One-hour Glucola within normal limits. On exam patient is 5 foot 8 inches 190 pounds blood pressure 125/65. The general physical exam is within normal limits. heart rate is consistent with reactive NST. She is having mild irregular uterine contractions. Cervix is 3-4 cm dilated, 60-70%, -2 station, vertex presentation. Impression: 39 week intrauterine , here for induction of labor, all signs reassuring. Plan: Close maternal and surveillance. Oxytocin per hospital protocol. Analgesic options reviewed with the patient. Anticipate normal spontaneous vaginal delivery. Review of Systems Constitutional: Reports as per HPI Past Medical History Past Medical History: No Reported History Additional Past Medical History / Comment(s): palpatations with dizziness in the past {seen in the [facility] on 12/12/15 for sx and released} pt states she was told her thyroid levels were low by an "all natural doctor" and was taking an OTC supplement for it. History of Any Multi-Drug Resistant Organisms: None Reported Past Surgical History: No Surgical Hx Reported Past Anesthesia/Blood Transfusion Reactions: No Reported Reaction Past Psychological History: Anxiety Additional Psychological History / Comment(s): not treated Smoking Status: Never smoker Past Alcohol Use History: None Reported Past Drug Use History: None Reported - Past Family History Father Additional Family Medical History / Comment(s): irregular heartbeat pt is unsure of what the term is Medications and Allergies Home Medications Medication Instructions Recorded Confirmed Type L.acidoph,Paracasei, B.lactis 1 each PO DAILY 03/01/21 03/01/21 History [Probiotic] Pnv No.95/Ferrous Fum/Folic AC 1 each PO DAILY 03/01/21 03/01/21 History [ Multivitamin Tablet] Allergies Allergy/AdvReac Type Severity Reaction Status Date / Time No Known Allergies Allergy Verified 03/01/21 06:31 Exam Vital Signs Pulse Resp BP Pulse Ox 03/01/21 06:40 95 18 125/65 97 Intake and Output 02/28/21 03/01/21 03/01/21 22:59 06:59 14:59 Other: Weight 86.183 kg See dictation under HPI Results Result Diagrams: 03/01/21 06:45 Assessment and Plan Assessment: 39 week intrauterine , increasing issues with Cholelithiasis, favorable cervix, here for induction of labor. All signs reassuring. Plan: Close maternal and surveillance. Oxytocin per hospital protocol. Analgesic options reviewed. Anticipate normal spontaneous vaginal delivery. Time with Patient: Less than 30
[2021-03-01] MEDS ORDERED: BUTORPHANOL 1 MG/ML 1 ML VIAL IV PRN (10:47)
[2021-03-01] MEDS ORDERED: diphenhydrAMINE 50 MG/ML 1 ML VIAL IVP PRN ×2 (13:12)
[2021-03-01] MEDS ORDERED: SIMETHICONE 80 MG CHEWABLE PO PRN (13:12)
[2021-03-01] MEDS ORDERED: LANOLIN CREAM 5 GM TUBE TOPICAL PRN (13:12)
[2021-03-01] MEDS ORDERED: ZOLPIDEM 5 MG TAB PO PRN (13:12)
[2021-03-01] MEDS ORDERED: diphenhydrAMINE 25 MG CAP PO PRN (13:12)
[2021-03-01] MEDS ORDERED: diphenhydrAMINE ELIXIR 25 MG/10 ML CUP PO PRN (13:12)
[2021-03-01] MEDS ORDERED: HYDROCORTISONE 2.5% RECTAL CREAM 30 GM TUBE RECTAL PRN (13:12)
[2021-03-01] MEDS ORDERED: diphenhydrAMINE 50 MG CAP PO PRN (13:12)
[2021-03-01] MEDS ORDERED: BENZOCAINE/MENTHOL SPRAY 1 GM/SPRAY AEROSOL TOPICAL PRN (13:12)
--- NOTE | 2021-03-01 13:12 | P.PROBDLV ---
Vaginal Delivery Note - . Vaginal Delivery Note: This is a 25-year-old white female 3 para 1011 EDC 03/08/2021 at 39 weeks gestation. Patient presented for induction with increasing right upper quadrant pain, cholelithiasis diagnosed. Cervix is multiparous and favorable. [place] strep cultures negative, rubella immune, blood type A positive. Please see dictated history and physical for details. Artificial amniorrhexis revealed clear fluid. Oxytocin was started and titrated per hospital protocol. Patient requested Stadol was given this 1. She became completely dilated at 1246 hrs. Perineal body was prepped and draped in usual sterile fashion. With excellent maternal expulsive efforts 's head delivered occiput anterior and restituted accordingly. There was a nuchal cord 2 that was reduced. The left or anterior shoulder was delivered easily from underneath the pubic symphysis at which time the oropharynx, nasopharynx, and external nares were both bulb suctioned. Patient was officially delivered of a liveborn female at 1255 hrs. Umbilical cord was doubly clamped and ligat ed, she was handed to waiting nurses for evaluation where scores of 9 and 9 at one and 5 minutes respectively were given. Placenta delivered spontaneously, it was inspected and noted to be intact with trivascular cord at 1257 hrs. Uterus is then massaged. Careful inspection of the cervix, vagina, perineum, periurethral, and perirectal areas revealed a very small first-degree laceration at 6:00. This was injected with lidocaine and repaired in the usual fashion using 3-0 repeat suture. Infant's weight 7 lbs. 10 oz., 3450 g. total estimated blood loss 250 mL's. All sponge needle and enhancement counts are correct at the end of the procedure. Patient and her family are allowed to begin the bonding experience in the LDR.
[2021-03-01] MEDS: IBUPROFEN 600 MG TAB PO SCH (14:20)
[2021-03-01] MEDS: ACETAMINOPHEN TAB 325 MG TAB PO PRN (20:10)
[2021-03-01] MEDS: SENNOSIDES-DOCUSATE SODIUM 1 EACH TAB PO SCH (20:11)
[2021-03-02] MEDS: LACTATED RINGERS 1,000 ML IV SCH (01:52)
[2021-03-02] MEDS: IBUPROFEN 600 MG TAB PO SCH ×3 (02:52→12:47)
--- NOTE | 2021-03-02 07:54 | P.DS ---
Providers Date of admission: 03/01/21 06:24 Expected date of discharge: 03/02/21 Attending physician: Renee Mukherjee Primary care physician: Stated None Hospital Course: This is a 25-year-old white female 3 para 1011 EDC 03/08/2021 at 39 weeks gestation who presented for induction for increasing right upper quadrant discomfort secondary to gallstones. Cervix is favorable, group B strep cultures negative, blood type A positive, rubella status immune. Please see dictated history and physical for details. Artificial amniorrhexis revealed clear fluid. Epidural was offered, but declined. Stadol given 1. Patient went on to swiftly deliver vaginally a liveborn female infant with scores of 9 and 9 at one and 5 minutes respectively. There was a small first-degree perineal laceration noted. Infant weighed 7 lbs. 10 oz. or 3450 g. Please see dictated delivery note for details. This morning the patient is doing well. She is voiding, ambulating, passing flatus without difficulty. Vital signs are stable and she is afebrile. Fundus is firm and in the midline, symmetric and 18 week size. Extremities are negative for edema. [place] infant is doing well. Breast-feeding is going well. Patient is judged to be in very good condition for discharge home. She will follow-up with me in the office in 6 weeks. I have reminded her no intercourse, tampons or douching. She will use [id number] Advil or Aleve, or Motrin as needed for pain. She will call with any fevers shakes or chills, foul smelling or copious lochia, with the passage of large blood clots, with any pain not alleviated by [id number] products, or indeed with any concerns. Contraceptive options have been discussed with the patient and we will discuss this further in the office. Assessment: Doing well day #1 Patient Condition at Discharge: Good Plan - Discharge Summary Discharge Rx Participant: No New Discharge Prescriptions: No Action Pnv No.95/Ferrous Fum/Folic AC [ Multivitamin Tablet] 1 each PO DAILY L.acidoph,Paracasei, B.lactis [Probiotic] 1 each PO DAILY Discharge Medication List L.acidoph,Paracasei, B.lactis [Probiotic] 1 each PO DAILY 03/01/21 [History] Pnv No.95/Ferrous Fum/Folic AC [ Multivitamin Tablet] 1 each PO DAILY 03/01/21 [History] Follow up Appointment(s)/Referral(s): Renee Mukherjee MD [STAFF PHYSICIAN] - 6 Weeks Discharge Disposition: HOME SELF-CARE
[2021-03-02] MEDS: SENNOSIDES-DOCUSATE SODIUM 1 EACH TAB PO SCH ×2 (08:30→20:18)
[2021-03-02] MEDS: ACETAMINOPHEN TAB 325 MG TAB PO PRN (18:11)
[2021-03-03] MEDS: IBUPROFEN 600 MG TAB PO SCH ×2 (04:57→14:02)
[2021-03-03 08:22] VITALS: BP 112/71; PULSE 63; RESP 18; TEMP 98.8
[2021-03-03] MEDS: SENNOSIDES-DOCUSATE SODIUM 1 EACH TAB PO SCH (09:42)
== END 2021-03-03 15:00 | disposition home or self-care (01) | DRG 806 ==
LOC: 4FBP 06:24
PROVIDERS: ADMIT Obstetrics & Gynecology; ATTEND Obstetrics & Gynecology
PROC: 10E0XZZ Delivery of Products of Conception, External Approach (ICD-10-PCS; principal; 2021-03-01)
PROC: 0HQ9XZZ Repair Perineum Skin, External Approach (ICD-10-PCS; 2021-03-01)
DX: O70.0 First degree perineal laceration during delivery (principal); O26.62 Liver and biliary tract disorders in childbirth; Z37.0 Single live birth; O69.81X0 Labor and delivery complicated by cord around neck, without compression, not applicable or unspecified; K80.20 Calculus of gallbladder without cholecystitis without obstruction; O99.284 Endocrine, nutritional and metabolic diseases complicating childbirth; E03.9 Hypothyroidism, unspecified; Z3A.39 39 weeks gestation of pregnancy; Z79.82 Long term (current) use of aspirin; Z80.49 Family history of malignant neoplasm of other genital organs
CPT/HCPCS: 85025; 86850; 86900; 86901